=== PATIENT | male | born 1965 | race Caucasian/White ===

== ENCOUNTER 2017-08-24 08:05 | Inpatient (IN) | payer OTHER ==
[~2017-08-24] VITALS: Ht 157.5 cm; Wt 72.6 kg
[~2017-08-24 08:05] MED LIST: MOTRIN800 MG PO
== END 2017-08-26 09:27 | disposition home or self-care (01) | DRG 812 ==
LOC: MEDJ 08:05
PROC: 30233N1 Transfusion of Nonautologous Red Blood Cells into Peripheral Vein, Percutaneous Approach (ICD-10-PCS; principal; 2017-08-24)
DX: D50.8 Other iron deficiency anemias (principal); Z79.01 Long term (current) use of anticoagulants; I10 Essential (primary) hypertension; Z95.2 Presence of prosthetic heart valve

== ENCOUNTER 2021-02-03 08:56 | Emergency (ER) | payer OTHER ==
[~2021-02-03] VITALS: Ht 162.6 cm; Wt 72.6 kg
[2021-02-03] MEDS ORDERED: CARVEDILOL12.5 M1 PO (09:04)
[2021-02-03] MEDS ORDERED: LEVOTHYROXINE112 MCG PO (09:04)
[2021-02-03] MEDS ORDERED: WARFARIN SODIUM6 MG PO (09:05)
== END 2021-02-03 11:51 | disposition home or self-care (01) ==
LOC: ER 08:56
DX: B34.9 Viral infection, unspecified (principal); Z20.822 Contact with and (suspected) exposure to COVID-19

== ENCOUNTER 2021-06-26 07:15 | Emergency (ER) | payer OTHER ==
[~2021-06-26] VITALS: Ht 162.6 cm; Wt 72.6 kg
[~2021-06-26 07:15] MED LIST changes: +CARVEDILOL12.5 M1 PO; +LEVOTHYROXINE112 MCG PO; +WARFARIN SODIUM6 MG PO
== END 2021-06-26 11:21 | disposition home or self-care (01) ==
LOC: ER 07:15
DX: M54.50 Low back pain, unspecified (principal); E78.00 Pure hypercholesterolemia, unspecified; I10 Essential (primary) hypertension; Z86.72 Personal history of thrombophlebitis

== ENCOUNTER 2022-02-05 06:46 | Emergency (ER) | payer OTHER ==
[~2022-02-05] VITALS: Ht 162.6 cm; Wt 73.5 kg
== END 2022-02-05 10:03 | disposition home or self-care (01) ==
LOC: ER 06:46
DX: B34.9 Viral infection, unspecified (principal); Z20.822 Contact with and (suspected) exposure to COVID-19

== ENCOUNTER 2022-11-11 10:36 | Emergency (ER) | payer OTHER ==
[~2022-11-11] VITALS: Ht 162.6 cm; Wt 70.8 kg
[2022-11-11] MEDS ORDERED: AMOX-CLAV 875-1 EACH PO (12:15)
[2022-11-11] MEDS ORDERED: TUSNEL LIQUID178 ML PO (12:15)
== END 2022-11-11 12:35 | disposition home or self-care (01) ==
LOC: ER 10:36
DX: J06.9 Acute upper respiratory infection, unspecified (principal); I10 Essential (primary) hypertension; Z86.79 Personal history of other diseases of the circulatory system

== ENCOUNTER 2022-11-17 07:42 | Outpatient (CLI) | payer OTHER ==
[~2022-11-17 07:42] MED LIST changes: +AMOX-CLAV 875-1 EACH PO; +TUSNEL LIQUID178 ML PO
== END 2022-11-17 07:52 | disposition home or self-care (01) ==
LOC: TOM 07:42
PROVIDERS: ATTEND Internal Medicine Cardiovascular Disease
DX: R07.9 Chest pain, unspecified (principal)

== ENCOUNTER 2023-01-11 14:05 | Emergency (ER) | payer OTHER ==
[~2023-01-11] VITALS: Ht 162.6 cm; Wt 69.9 kg
[2023-01-11] MEDS ORDERED: LIPITOR40 MG (14:27)
[2023-01-11] MEDS ORDERED: PEPCID40 MG (14:27)
[2023-01-11] MEDS ORDERED: LASIX40 MG (14:27)
[2023-01-11 15:59] LABS: HEMATOCRIT 32.9 % (39.0-48.0); HEMOGLOBIN 10.7 g/dL (13-16.00); MEAN CELL VOLUME 70.3 fL (80.0-100.00); MEAN CORPUSCULAR HEMOGLOBIN 22.8 pg (27.00-32.0); MEAN CORPUSCULAR HGB CONC 32.5 g/dl (32.0-36.0); PLATELET COUNT 290 K/uL (150-450); RED BLOOD COUNT 4.68 M/uL (4.00-6.00); RED CELL DISTRIBUTION WIDTH 17.2 % (11.5-14.5)
[2023-01-11 16:09] LABS: ANION GAP 9 (10.0-20.0); BLOOD UREA NITROGEN 19 mg/dL (7-18); BUN CREA RATIO 19 (7.0-25.0); CALCIUM 8.8 mg/dL (8.5-10.1); CARBON DIOXIDE 30 mEq/L (21-32); CHLORIDE 103 mmol/L (98-107); CREATININE SERUM 0.98 mg/dL (0.70-1.30); GFR 78.83; GLUCOSE FASTING 98 mg/dL (65-100); OSMOLALITY SERUM 278 MOSM/KG (275-295); POTASSIUM 3.82 mEq/L (3.5-5.1); SODIUM 138 mmol/L (136-145)
[2023-01-11 16:10] LABS: C-REACTIVE PROTEIN < 0.29 MG/DL (0.00-0.29)
[2023-01-11 18:22] LABS: ABG PH 7.429 (7.35-7.45); ABG PO2 82.5 mmHg (80-100); ABG pCO2 44.7 mmHg (35-45); BASE EXCESS 3.9 mmol/l; BICARBONATE 28.9 mmol/l (23-25); SaO2 96.5 %; Tco2 30.3 mmol/l; allen test SATISFACTORY; o2 21 %; puncture site RADIAL RIGHT
== END 2023-01-11 22:10 | disposition home or self-care (01) ==
LOC: ER 14:06
PROVIDERS: Emergency Medicine
DX: I50.9 Heart failure, unspecified (principal); Z20.822 Contact with and (suspected) exposure to COVID-19; R07.89 Other chest pain

== ENCOUNTER 2024-05-17 07:36 | Outpatient (CLI) | payer OTHER ==
[~2024-05-17 07:36] MED LIST changes: +LASIX40 MG; +LIPITOR40 MG; +PEPCID40 MG
== END 2024-05-17 07:48 | disposition home or self-care (01) ==
LOC: TOM 07:36
PROVIDERS: ATTEND Internal Medicine Gastroenterology
DX: K92.1 Melena (principal)